=== PATIENT | female | born 1940 | race Caucasian/White ===

== ENCOUNTER 2022-01-02 09:38 | Outpatient (CLI) | payer OTHER, SELFPAY ==
[2022-01-02 18:44] LABS: Basophils Absolute Auto 0.1 K/mm3 (0.0-0.1); Basophils Percent Auto 0.8 % (0.2-1.2); Eosinophils Absolute Auto 0.4 K/mm3 (0-0.3); Eosinophils Percent Auto 5.4 % (0-4.4); Hematocrit 44.3 % (37.0-47.0); Immature Granulocyte Absolute 0.03 K/mm3 (0.00-0.031); Immature Granulocyte Percent A 0.4 % (0-0.5); Lymphocytes Absolute Auto 1.48 K/mm3 (0.9-3.2); Lymphocytes Percent Auto 20.4 % (18.3-44.2); Mean Corpuscular HGB Conc 31.6 g/dl (32-36); Mean Corpuscular Hemoglobin 30.8 pg (26-34); Mean Corpuscular Volume 97.4 fl (80-100); Mean Platelet Volume 11.9 fl (7.4-10.4); Monocytes Absolute Auto 0.5 K/mm3 (0.1-0.6); Monocytes Percent Auto 6.3 % (2.6-8.5); Neutrophils Absolute Auto 4.8 K/mm3 (1.3-6.7); Neutrophils Percent Auto 66.7 % (45.5-73.1); Platelet Count Result 210 k/mm3 (150-375); Red Blood Count 4.55 M/mm3 (4.2-5.4); Red Cell Distribution Width 14.8 % (11.5-14.5); White Blood Count 7.3 K/mm3 (4.5-10.0)
[2022-01-02 19:16] LABS: Alanine Aminotransferase 21 U/L (6-35); Albumin Level 4.5 g/dL (3.5-5.1); Alkaline Phosphatase 95 U/L (38-126); Anion Gap 13 mmol/L (8-16); Aspartate Amino Transferase 21 U/L (14-36); Bilirubin,Total 0.6 mg/dL (0.2-1.3); Blood Urea Nitrogen 21 mg/dL (7-17); Calcium 9.2 mg/dL (8.4-10.2); Carbon Dioxide 24 mmol/L (22-30); Chloride 105 mmol/L (98-107); Cholesterol 137 mg/dL (0-200); Estimated Glomerular Filt Rate 60; Glucose 98 mg/dL (65-110); HDL Direct 42 mg/dL; Potassium 4.2 mmol/L (3.4-5.0); Sodium 142 mmol/L (137-145); Triglycerides 114 mg/dL (<150)
[2022-01-02 19:27] LABS: LDL Cholesterol Direct 63 mg/dL
[2022-01-02 20:16] LABS: Vitamin D 25 Hydroxy 50.7 ng/mL
== END 2022-01-02 09:39 | disposition home or self-care (01) ==
LOC: ANHGOSHLAB 09:40
PROVIDERS: PCP Family Medicine; Visit Provider Family Medicine
DX: E78.5 Hyperlipidemia, unspecified (principal); E55.9 Vitamin D deficiency, unspecified; I10 Essential (primary) hypertension; Z00.00 Encounter for general adult medical examination without abnormal findings; F41.9 Anxiety disorder, unspecified; E53.8 Deficiency of other specified B group vitamins
CPT/HCPCS: 36415; 80053; 80061; 82306; 82607; 84443; 85025

== ENCOUNTER 2023-01-15 13:39 | Outpatient (CLI) | payer OTHER, SELFPAY ==
[2023-01-15 18:40] LABS: Alanine Aminotransferase 19 U/L (6-35); Albumin Level 4.4 g/dL (3.5-5.1); Alkaline Phosphatase 96 U/L (38-126); Anion Gap 8 mmol/L (8-16); Aspartate Amino Transferase 31 U/L (14-36); Bilirubin,Total 0.7 mg/dL (0.2-1.3); Blood Urea Nitrogen 23 mg/dL (7-17); Calcium 9.8 mg/dL (8.4-10.2); Carbon Dioxide 30 mmol/L (22-30); Chloride 104 mmol/L (98-107); Cholesterol 133 mg/dL (0-200); Estimated Glomerular Filt Rate > 60; Glucose 84 mg/dL (65-110); HDL Direct 45 mg/dL; Potassium 3.7 mmol/L (3.4-5.0); Sodium 142 mmol/L (137-145); Triglycerides 113 mg/dL (<150)
[2023-01-15 18:51] LABS: LDL Cholesterol Direct 68 mg/dL
[2023-01-15 18:57] LABS: Vitamin D 25 Hydroxy 35.7 ng/mL
[2023-01-15 19:40] LABS: Basophils Absolute Auto 0.1 K/mm3 (0.0-0.1); Basophils Percent Auto 0.8 % (0.2-1.2); Eosinophils Absolute Auto 0.3 K/mm3 (0-0.3); Eosinophils Percent Auto 3.4 % (0-4.4); Hematocrit 43.6 % (37.0-47.0); Hemoglobin 13.7 g/dL (12.0-15.0); Immature Granulocyte Absolute 0.03 K/mm3 (0.00-0.031); Immature Granulocyte Percent A 0.4 % (0-0.5); Lymphocytes Absolute Auto 1.68 K/mm3 (0.9-3.2); Mean Corpuscular HGB Conc 31.4 g/dl (32-36); Mean Corpuscular Hemoglobin 30.5 pg (26-34); Mean Corpuscular Volume 97.1 fl (80-100); Mean Platelet Volume 12.2 fl (7.4-10.4); Monocytes Absolute Auto 0.7 K/mm3 (0.1-0.6); Monocytes Percent Auto 7.7 % (2.6-8.5); Neutrophils Absolute Auto 5.7 K/mm3 (1.3-6.7); Neutrophils Percent Auto 67.7 % (45.5-73.1); Platelet Count Result 220 k/mm3 (150-375); Red Blood Count 4.49 M/mm3 (4.2-5.4); Red Cell Distribution Width 14.8 % (11.5-14.5); White Blood Count 8.4 K/mm3 (4.5-10.0)
[2023-01-15 19:52] LABS: Hemoglobin A1C 5.1 % (<5.7)
== END 2023-01-15 13:40 | disposition home or self-care (01) ==
PROVIDERS: PCP Family Medicine; Visit Provider Nurse Practitioner Family
DX: Z00.00 Encounter for general adult medical examination without abnormal findings (principal); I10 Essential (primary) hypertension; R73.03 Prediabetes; Z13.220 Encounter for screening for lipoid disorders; Z13.29 Encounter for screening for other suspected endocrine disorder; E55.9 Vitamin D deficiency, unspecified
CPT/HCPCS: 36415; 80053; 80061; 82306; 83036; 84443; 85025

== ENCOUNTER → 2023-01-15 13:58 | Outpatient (CLI) | payer OTHER, SELFPAY ==
--- NOTE | ~2023-01-15 | XR_ITS ---
EXAMINATION: [id number] INDICATION: Left knee pain TECHNIQUE: Two views of the left knee are obtained. COMPARISON: None available FINDINGS: There are changes of knee arthroplasty. Alignment is normal. There is no fracture. The orth opedic hardware appears intact. Calcified atherosclerosis is noted. IMPRESSION: 1. No acute osseous abnormality. Reviewed, dictated and finalized at location L. TAL DESIGN ENGINEER
== END ==
PROVIDERS: PCP Nurse Practitioner Family; Visit Provider Nurse Practitioner Family
DX: M25.562 Pain in left knee (principal)
CPT/HCPCS: 73560

== ENCOUNTER 2023-06-11 10:26 | Outpatient (CLI) | payer OTHER, SELFPAY ==
[2023-06-11 13:26] LABS: Alanine Aminotransferase 16 U/L (6-35); Albumin Level 4.3 g/dL (3.5-5.1); Alkaline Phosphatase 99 U/L (38-126); Anion Gap 7 mmol/L (4-12); Aspartate Amino Transferase 41 U/L (14-36); Bilirubin,Total 0.6 mg/dL (0.2-1.3); Blood Urea Nitrogen 26 mg/dL (7-17); Calcium 10.3 mg/dL (8.4-10.2); Carbon Dioxide 28 mmol/L (22-30); Chloride 105 mmol/L (98-107); Estimated Glomerular Filt Rate 60; Glucose 96 mg/dL (65-110); Potassium 4.6 mmol/L (3.4-5.0); Sodium 140 mmol/L (137-145)
== END 2023-06-11 10:27 | disposition home or self-care (01) ==
PROVIDERS: PCP Family Medicine; Visit Provider Family Medicine
DX: E78.2 Mixed hyperlipidemia (principal); I10 Essential (primary) hypertension
CPT/HCPCS: 36415; 80053

== ENCOUNTER 2024-01-22 08:11 | Outpatient (CLI) | payer OTHER, SELFPAY ==
[2024-01-22 12:03] LABS: Basophils Percent Auto 0.6 % (0.2-1.2); Eosinophils Absolute Auto 0.3 K/mm3 (0-0.3); Eosinophils Percent Auto 5.5 % (0-4.4); Hematocrit 42.1 % (37.0-47.0); Hemoglobin 13.3 g/dL (12.0-15.0); Immature Granulocyte Absolute 0.01 K/mm3 (0.00-0.031); Immature Granulocyte Percent A 0.2 % (0-0.5); Lymphocytes Percent Auto 22.7 % (18.3-44.2); Mean Corpuscular HGB Conc 31.6 g/dl (32-36); Mean Corpuscular Hemoglobin 30.6 pg (26-34); Mean Corpuscular Volume 96.8 fl (80-100); Mean Platelet Volume 11.2 fl (7.4-10.4); Monocytes Absolute Auto 0.5 K/mm3 (0.1-0.6); Monocytes Percent Auto 7.3 % (2.6-8.5); Neutrophils Absolute Auto 3.9 K/mm3 (1.3-6.7); Neutrophils Percent Auto 63.7 % (45.5-73.1); Platelet Count Result 197 k/mm3 (150-375); Red Blood Count 4.35 M/mm3 (4.2-5.4); Red Cell Distribution Width 14.6 % (11.5-14.5); White Blood Count 6.2 K/mm3 (4.5-10.0)
[2024-01-22 12:09] LABS: Alanine Aminotransferase 16 U/L (6-35); Albumin Level 4.1 g/dL (3.5-5.1); Alkaline Phosphatase 93 U/L (38-126); Anion Gap 8 mmol/L (4-12); Aspartate Amino Transferase 32 U/L (14-36); Bilirubin,Total 0.5 mg/dL (0.2-1.3); Blood Urea Nitrogen 19 mg/dL (7-17); Calcium 9.1 mg/dL (8.4-10.2); Carbon Dioxide 30 mmol/L (22-30); Chloride 104 mmol/L (98-107); Cholesterol 125 mg/dL (0-200); Estimated Glomerular Filt Rate > 60; Glucose 89 mg/dL (65-110); HDL Direct 43 mg/dL; Sodium 142 mmol/L (137-145); Triglycerides 83 mg/dL (<150)
[2024-01-22 12:34] LABS: LDL Cholesterol Direct 56 mg/dL
[2024-01-22 13:02] LABS: Hemoglobin A1C 5.3 % (<5.7)
== END 2024-01-22 08:12 | disposition home or self-care (01) ==
PROVIDERS: PCP Family Medicine; Visit Provider Family Medicine
DX: R73.9 Hyperglycemia, unspecified (principal); E53.8 Deficiency of other specified B group vitamins; G89.29 Other chronic pain; M54.50 Low back pain, unspecified; Z00.00 Encounter for general adult medical examination without abnormal findings; I10 Essential (primary) hypertension; E78.5 Hyperlipidemia, unspecified; E55.9 Vitamin D deficiency, unspecified
CPT/HCPCS: 36415; 80053; 80061; 82306; 82607; 83036; 84443; 85025

== ENCOUNTER 2024-07-22 09:12 | Outpatient (CLI) | payer OTHER, SELFPAY ==
--- OUTSIDE RECORDS SUMMARY | 2024-07-22 09:27 | XMS_ITS | Patient Health Record ---
Author Organization [facility] Address [address] [facility] [address] [place], [place] [address] Care Team Providers Care Special Events Manager Name Role Phone Vineet Oliver Unavailable [phone] Reason For Referral No Information Plan Of Treatment No Information Insurance Providers Payer Name Payer Address Payer Phone Subscriber Number Group Number Insured Name Patient Relationship to Insured Coverage Start Date Coverage End Date [facility] [address] [place] [id number] Sydney Sullivan Self - patient is the insured
--- OUTSIDE RECORDS SUMMARY | 2024-07-22 09:27 | XMS_ITS | Clinical Summary ---
Author Organization [facility] Address [address] [facility] [place] [address] Care Team Providers Care Senior Cytogenetics Laboratory Director Name Role Phone Sara Arias RN Unavailable [phone] Rashawn Khalil MD Unavailable [phone] Ning Everett MD Primary Care Provider [phone] Source Comments [facility],non-owned Affiliates and Associated Physician Practices is amultiple site organization consisting of ambulatory clinics and hospital sitesin [place], [place], [place] and [place]. This disclosure is being madepursuant to the Care Everywhere program and may not contain all information available regarding this patient. Last updated 17.[facility] Allergies Active Allergy Reactions Criticality Noted Date Comments Penicillins Rash Low 08/17/2013 As a child Medications * Be aware that medications may not be up to date on this document. Alwaysverify current medications with the patient. FLUoxetine (PROZAC) 10 MG capsule Take 10 mg by mouth every morning Active pravastatin (PRAVACHOL) 80 MG tablet Take 1 Tab by mouth at bedtime. 30 Tab 11 4 Active metoprolol tartrate IR (LOPRESSOR) 50 MG tablet Take 1 Tab by mouth 2 times daily. 60 Tab 11 4 Active triamcinolone acetonide (KENALOG) 0.1 % cream Apply to affected area 2 times daily as needed Apply externally to itching. 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 (F LUZONE; FLULAVAL; FLUARIX; AFLURIA QUADRIVALENT; 6MO+), 0.5 ML (IIV4) 04/08/2015 PNEUMOCOCCAL PPSV23 08/18/2013 Social History Tobacco Use Types Packs/Day Years Used Date Smoking Tobacco: Never Smokeless Tobacco: Never Tobacco Cessation:Counseling Given: Yes Alcohol Use Standard Drinks/Week Comments No 0 (1 standard drink = 0.6 oz pur e alcohol) Comments No Sex and Gender Information Value Date Recorded Sex Assigned at Not on file Legal Sex Female 7:44 AM CDT Gender Identity Not on file Sexual Orientation Not on file Last Filed Vital Signs Vital Sign Reading Time Taken Comments Blood Pressure 157/76 05/02/2015 8:20 AM SALESPERSON FLOOR COVERINGS Pulse 70 05/02/2015 8:20 AM SALESPERSON FLOOR COVERINGS Temperature 36.7 C (98.1 F) 05/02/2015 8:20 AM SALESPERSON FLOOR COVERINGS Respiratory Rate 18 05/02/2015 8:20 AM SALESPERSON FLOOR COVERINGS Oxygen Saturation 100% 05/02/2015 8:20 AM SALESPERSON FLOOR COVERINGS Inhaled Oxygen Concentration 21% 04/06/2015 9 :35 AM SALESPERSON FLOOR COVERINGS Weight 68 kg (150 lb) 04/30/2015 9:34 AM SALESPERSON FLOOR COVERINGS Height 149.9 cm (4' 11 ) 04/30/2015 9:34 AM SALESPERSON FLOOR COVERINGS Body Mass Index 30.3 04/30/2015 9:34 AM SALESPERSON FLOOR COVERINGS Plan of Treatment Health Maintenance Due Date Last Done Comments BONE DENSITY TESTING 1942 DTAP/TDAP/TD VACCINES (1 - Tdap) 1961 ZOSTER VACCINE (1 of 2) 01/09/1992 PNEUMOCOCCAL VACCINE 50+ (2 of 2 - PCV) 08/18/2014 08/18/2013 Respiratory Syncytial Virus (RSV) Vaccine Pt: or over 60 yrs (1 - 1-dose 75+ series) 2017 COVID-19 VACCINE ( - 2023-2 5 season) 2023 DEPRESSION SCREENING 03/09/2024 INFLUENZA VACCINE (Season Ended) 2024 04/08/19 16 HEPATITIS B VACCINE Aged Out No longe r eligible based on patient's age to complete this topic HIB VACCINE Aged Out No longer eligi ble based on patient's age to complete this topic HPV VACCINE Aged Out No longer eligi ble based on patient's age to complete this topic MENINGOCOCCAL (Group B) VACC INE SHARED DECISION-MAKING Aged Out No longer eligibl e based on patient's age to complete this topic MENINGOCOCCAL GROUPS A/C/Y/W VACCINE Aged Out No longer eligible b ased on patient's age to complete this topic Medical Devices Implanted Type Area Camera Maker Device Identifier Shelf Expiration Date Model / Serial / Lot Bradley Bone [place] Hv Implanted:Qty: 1 on 10/05/2014 by Rashawn Khalil MD at [facility] Right: Knee [employer] 05/06/2016 [id number] / / [id number] Ty Tibial I Beam Fix Bar 67mm Implanted:Qty: 1 on 10/05/2014 by Rashawn Khalil MD at [facility] Right: [employer]nee [employer] 12/07/2023 [id number] / / [id number] Kn Ins Vangurd Fem Cocr R-Intlok 60mm Implanted:Qty: 1 on 10/05/2014 by Rashawn Khalil MD at [facility] Right: Knee [employer] 05/03/2024 [id number] / / [id number] Butn Pat Arcom Wire Polyeth Xsm 28 X 8 Implanted:Qty: 1 on 10/05/2014 by Rashawn Khalil MD at [facility] Right: Knee [employer] 07/08/2019 [id number] / / [id number] Brdg Tib 14mm X 67mm Implanted:Qty: 1 on 10/05/2014 by Rashawn Khalil MD at [facility] Right: Knee [employer] 07/13/2019 [id number] / / [id number] 55mm-67.5mm As Tibial Bearing Implanted:Qty: 1 on 04/05/2015 by Rashawn Khalil MD at [facility] Left: Knee [employer] 12/07/2019 [id number] / / [id number] Bradley Bone [place] Hv Implanted:Qty: 1 on 04/05/2015 by Rashawn Khalil MD at [facility] Left: Knee [employer] 09/05/2016 [id number] / / [id number] Butn Pat Arcom Wire Polyeth Xsm 28 X 8 Implanted:Qty: 1 on 04/05/2015 by Rashawn Khalil MD at [facility] Left: Knee [employer] 01/31/2020 [id number] / / [id number] Ty Tibial I Beam Fix Bar 67mm Implanted:Qty: 1 on 04/05/2015 by Rashawn Khalil MD at [facility] Left: Knee [employer] 03/12/2025 [id number] / / [id number] Kn Ins Vangurd Fem Cocr L-Intlok 62.5mm Implanted:Qty: 1 on 04/05/2015 by Rashawn Khalil MD at [facility] Left: Knee [employer] 01/18/2025 [id number] / / [id number] Insurance [facility] MEDIC[facility] Advance Directives * Full Code (Latest Code Status on File) Date Activated Date Inactivated Comments 04/30/2015 7:04 AM 05/02/2015 4:03 PM * Full Code Date Activated Date Inactivated Comments 04/05/2015 2:48 PM 04/08/2015 3:43 PM * Full Code Date Activated Date Inactivated Comments 10/05/2014 2:58 PM 10/09/2014 2:10 PM * Full Code Date Activated Date Inactivated Comments 08/17/2013 10:19 AM 08/19/2013 12:44 PM Care Teams Senior Cytogenetics Laboratory Director Relationship Specialty [place] [address] [place] [address] PCP - General Family Medicine 03/05/15 Sara Arias, RN Natural Resource Economist 08/17/13 [place] [address] [place] [address] Orthopedic Surgery 08/31/14
--- OUTSIDE RECORDS SUMMARY | 2024-07-22 09:27 | XMS_ITS | Encounter Summary ---
Author Organization [facility] Address [address] [facility] [place] [address] Care Team Providers Care Frame Pulley Mortising Machine Operator Name Role Phone Sara Arias RN Unavailable [phone] Rashawn Khalil MD Unavailable [phone] Ning Everett MD Primary Care Provider [phone] Encounter Details Date Type Department Care Team (Late st Contact Info) Description 04/25/2015 Therapy Visit [facility] Orthopedics [address] [address] [place] [id number] [address] Social History Tobacco Use Types Packs/Day Years Used Date Smoking Tobacco: Never Smokeless Tobacco: Never Alcohol Use Standard Drinks/Week Comments No 0 (1 standard drink = 0.6 oz pur e alcohol) Comments No Sex and Gender Information Value Date Recorded Sex Assigned at Not on file Legal Sex Female 7:44 AM CDT Gender Identity Not on file Sexual Orientation Not on file documented as of this encounter Functional Status * Is person deaf or have serious hearing difficulty? Answer Date of Assessment Author No 04/08/2015 1:16 PM Alonzo Downs RN * Is person blind or have serious difficulty seeing? Answer Date of Assessment Author No 04/08/2015 1:16 PM Alonzo Downs RN * Does person have serious difficulty walking/climbing stairs? Answer Date of Assessment Author No 04/08/2015 1:16 PM Alonzo Downs RN * Does person have difficulty dressing/bathing? Answer Date of Assessment Author No 04/08/2015 1:16 PM Alonzo Downs RN * Does person have difficulty doing errands alone? Answer Date of Assessment Author Yes 04/08/2015 1:16 PM Alonzo Downs RN documented as of this encounter Mental Status * Does person have difficulty concentrating/remembering/making decisions? Answer Entry Date Author No 04/08/2015 1:16 PM Alonzo Downs RN documented in this encounter Plan of Treatment Not on file documented as of this encounter Visit Diagnoses Not on filedocumented in this encounter Care Teams Frame Pulley Mortising Machine Operator Relationship Specialty [place] [address] [place] [address] PCP - General Family Medicine 03/05/15 Sara Arias RN Ink Technician 08/17/13 [place] [address] [place] [address] Orthopedic Surgery 08/31/14 documented as of this encounter
--- OUTSIDE RECORDS SUMMARY | 2024-07-22 09:27 | XMS_ITS | Encounter Summary ---
Author Organization [facility] Address [address] [facility] [place] [address] Care Team Providers Care Graduate School Dean Name Role Phone Sara Arias RN Unavailable [phone] Rashawn Khalil MD Unavailable [phone] Billy Salmon Primary Care Provider [phone] Ning Everett MD Primary Care Provider [phone] Encounter Details Date Type Department Care Team (Late st Contact Info) Description 10/26/2014 Therapy Visit [facility] Orthopedics [address] [facility] [address] [place] [address] [place] [id number] [address] Social History Tobacco Use Types [...] difficulty? Answer Date of Assessment Author No 10/05/2014 1:22 PM JORGET Ning Juan mp, RN * Is person blind or have serious difficulty seeing? Answer Date of Assessment Author No 10/05/2014 1:22 PM JORGET Ning Juan mp, RN * Does person have serious difficulty walking/climbing stairs? Answer Date of Assessment Author Yes 10/05/2014 1:22 PM CDT Ning Juan mp, RN * Does person have difficulty dressing/bathing? Answer Date of Assessment Author No 10/05/2014 1:22 PM JORGET Ning Juan mp, RN * Does person have difficulty doing errands alone? Answer Date of Assessment Author No 10/05/2014 1:22 PM JORGET Ning Juan mp, RN documented as of this encounter Mental Status * Does person have difficulty concentrating/remembering/making decisions? Answer Entry Date Author No 10/05/2014 1:22 PM Ning Ellison mp, RN documented in this encounter Plan of Treatment Not on file documented as of this encounter Visit Diagnoses Not on filedocumented in this encounter Care Teams Graduate School Dean Relationship Specialty Start Date End Date Nick[address] [place] [address] PCP - General 08/31/14 03/04/15 Ning Everett MD [address] [place] [address] PCP - General Family Medicine 03/05/15 Sara Arias RN Applications Systems Analyst 08/17/13 [place] [address] [place] [address] Orthopedic Surgery 08/31/14 documented as of this encounter
[2024-07-22 12:34] LABS: Alanine Aminotransferase 19 U/L (6-35); Albumin Level 4.1 g/dL (3.5-5.1); Alkaline Phosphatase 88 U/L (38-126); Anion Gap 8 mmol/L (4-12); Aspartate Amino Transferase 36 U/L (14-36); Bilirubin,Total 0.5 mg/dL (0.2-1.3); Blood Urea Nitrogen 25 mg/dL (7-17); Carbon Dioxide 27 mmol/L (22-30); Chloride 107 mmol/L (98-107); Estimated Glomerular Filt Rate > 60; Glucose 78 mg/dL (65-110); Sodium 142 mmol/L (137-145)
== END 2024-07-22 09:13 | disposition home or self-care (01) ==
PROVIDERS: PCP Family Medicine; Visit Provider Family Medicine
DX: E53.8 Deficiency of other specified B group vitamins (principal); I10 Essential (primary) hypertension
CPT/HCPCS: 36415; 80053; 82607

== ENCOUNTER 2025-02-27 09:11 | Outpatient (CLI) | payer OTHER, SELFPAY ==
--- OUTSIDE RECORDS SUMMARY | 2025-02-27 10:03 | XMS_ITS | Encounter Summary ---
Author Organization [facility] Address [address] [facility] [place] [address] Care Team Providers Care Male Model Name Role Phone Sara Arias RN Unavailable [phone] Rashawn Khalil MD Unavailable [phone] Ning Everett MD Primary Care Provider [phone] Encounter Details Date Type Department Care Team (Late st Contact Info) Description 04/25/2015 Therapy Visit [facility] Orthopedics [address] [address] [place] [address] [address] Social History Tobacco Use Types [...] on filedocumented in this encounter Care Teams Male Model Relationship Specialty [place] [address] [place] [address] PCP - General Family Medicine 03/05/15 Sara Arias RN Personal Injury Legal Assistant 08/17/13 [place] [address] [place] [address] Orthopedic Surgery 08/31/14 documented as of this encounter
--- OUTSIDE RECORDS SUMMARY | 2025-02-27 10:03 | XMS_ITS | Clinical Summary ---
Author Organization [facility] Address [address] [facility] [place] [address] Care Team Providers Care Parking Lot Manager Name Role Phone Sara Arias RN Unavailable [phone] Rashawn Khalil MD Unavailable [phone] Ning Everett MD Primary Care Provider [phone] Source Comments [facility],non-owned Affiliates and Associated Physician Practices is amultiple site organization consisting of ambulatory clinics and hospital sitesin [place], [place], [place] and [place]. This disclosure is being madepursuant to the Care Everywhere program and may not contain all information available regarding this patient. Last updated 17.[facility] Allergies Active Allergy Reactions Criticality Noted Date [...] Take 1 Tab by mouth once daily 6 Active omeprazole EC (PRILOSEC OTC) 20 [...] Comments Blood Pressure 157/76 05/02/2015 8:20 AM OPTOMETRY TEACHER Pulse 70 05/02/2015 8:20 AM OPTOMETRY TEACHER Temperature 36.7 C (98.1 F) 05/02/2015 8:20 AM OPTOMETRY TEACHER Respiratory Rate 18 05/02/2015 8:20 AM OPTOMETRY TEACHER Oxygen Saturation 100% 05/02/2015 8:20 AM OPTOMETRY TEACHER Inhaled Oxygen Concentration 21% 04/06/2015 9 :35 AM OPTOMETRY TEACHER Weight 68 kg (150 lb) 04/30/2015 9:34 AM OPTOMETRY TEACHER Height 149.9 cm (4' 11) 04/30/2015 9:34 AM OPTOMETRY TEACHER Body Mass Index 30.3 04/30/2015 9:34 AM OPTOMETRY TEACHER Plan of Treatment Health Maintenance Due Date Last Done Comments BONE DENSITY TESTING 1942 DTAP/TDAP/TD VACCINES (1 - Tdap) 1961 ZOSTER VACCINE (1 of 2) 01/09/1992 PNEUMOCOCCAL VACCINE 50+ (2 of 2 - PCV) 08/18/2014 08/18/2013 Respiratory Syncytial Virus (RSV) Vaccine Pt: or over 60 yrs (1 - 1-dose 75+ series) 2017 DEPRESSION SCREENING 03/09/2024 COVID-19 VACCINE (1 - 2024-2 6 season) 2024 INFLUENZA VACCINE (#1) 2024 04/08/2015 HEPATITIS B VACCINE Aged Out No longe [...] this topic Medical Devices Implanted Type Area Supervisor Park Workers Device Identifier Shelf Expiration Date Model / Serial / Lot Bradley Bone [place] Hv Implanted:Qty: 1 on 10/05/2014 by Rashawn Khalil MD at [facility] Right: Knee [employer] 05/06/2016 [id number] / / [id number] Ty Tibial I Beam Fix Bar 67mm Implanted:Qty: 1 on 10/05/2014 by Rashawn Khalil MD at [facility] Right: [employer] 12/07/2023 [id number] / / [id number] Kn Ins Vangurd Fem Cocr R-Intlok 60mm Implanted:Qty: 1 on 10/05/2014 by Rashawn Khalil MD at [facility] Right: [employer] 05/03/2024 [id number] / / [id number] Butn Pat Arcom Wire Polyeth Xsm 28 X 8 Implanted:Qty: 1 on 10/05/2014 by Rashawn Khalil MD at [facility] Right: [employer]nee [employer] 07/08/2019 [id number] / / [id number] Brdg Tib 14mm X 67mm Implanted:Qty: 1 on 10/05/2014 by Rashawn Khalil MD at [facility] Right: [employer] 07/13/2019 [id number] / / [id number] 55mm-67.5mm As Tibial Bearing Implanted:Qty: 1 on 04/05/2015 by Rashawn Khalil MD at [facility] Left: Knee [employer] 12/07/2019 [id number] / / [id number] Bradley Bone [place] Hv Implanted:Qty: 1 on 04/05/2015 by Rashawn Khalil MD at [facility] Left: Knee [employer] 09/05/2016 [id number] / / [id number] Butn Pat Arcom Wire Polyeth Xsm 28 X 8 Implanted:Qty: 1 on 04/05/2015 by Rashawn Khalil MD at [facility] Left: [employer]nee [employer] 01/31/2020 [id number] / / [id number] Ty Tibial I Beam Fix Bar 67mm Implanted:Qty: 1 on 04/05/2015 by Rashawn Khalil MD at [facility] Left: [employer]nee [employer] 03/12/2025 [id number] / / [id number] Kn Ins Vangurd Fem Cocr L-Intlok 62.5mm Implanted:Qty: 1 on 04/05/2015 by Rashawn Khalil MD at [facility] Left: [employer]nee [employer] 01/18/2025 [id number] / / [id number] Insurance [facility] MEDICARE Advance Directives * Full Code (Latest [...] 10:19 AM 08/19/2013 12:44 PM Care Teams Parking Lot Manager Relationship Specialty [place] [address] [place] [address] PCP - General Family Medicine 03/05/15 Sara Arias, RN Kosher Sealer 08/17/13 [place] [address] [place] [address] Orthopedic Surgery 08/31/14
--- OUTSIDE RECORDS SUMMARY | 2025-02-27 10:03 | XMS_ITS | Encounter Summary ---
Author Organization [facility] Address [address] [place] [address] Care Team Providers Care Electronic Scale Assembler And Tester Name Role Phone Sara Arias RN Unavailable [phone] Rashawn Khalil MD Unavailable [phone] Billy Salmon Primary Care Provider [phone] Ning Everett MD Primary Care Provider [phone] Encounter Details Date Type Department Care Team (Late st Contact Info) Description 10/26/2014 Therapy Visit [facility] Orthopedics [address] [facility] [address] [place] [address] [place] [address] [address] Social History Tobacco Use Types [...] Assessment Author No 10/05/2014 1:22 PM JORGET Diestelka mp, Ning J, RN * Does person have serious difficulty [...] on filedocumented in this encounter Care Teams Electronic Scale Assembler And Tester Relationship Specialty Start Date End Date NickyjacintoBilly delatorre [address] [place] [address] PCP - General 08/31/14 03/04/15 Ning Everett MD [address] [place] [address] PCP - General Family Medicine 03/05/15 Sara Arias RN Custom Shoe Designer And Maker 08/17/13 [place] [address] [facility] [address] [place] [address] Orthopedic Surgery 08/31/14 documented as of this encounter
[2025-02-27 13:58] LABS: Hematocrit 43.6 % (37.0-47.0); Hemoglobin 13.8 g/dL (12.0-15.0); Immature Granulocyte Percent A 0.3 % (0-0.5); Lymphocytes Absolute Auto 1.21 K/mm3 (0.9-3.2); Mean Corpuscular HGB Conc 31.7 g/dl (32-36); Mean Corpuscular Hemoglobin 30.1 pg (26-34); Mean Corpuscular Volume 95.2 fl (80-100); Nucleated Red Blood Cells Absolute Auto 0.000 K/mm3 (0.0-0.012); Nucleated Red Blood Cells Perc 0.0 % (0.0-0.2); Platelet Count Result 225 k/mm3 (150-375); Red Blood Count 4.58 M/mm3 (4.2-5.4); White Blood Count 7.6 K/mm3 (4.5-10.0)
[2025-02-27 14:19] LABS: Alanine Aminotransferase 21 U/L (6-35); Albumin Level 4.4 g/dL (3.5-5.1); Alkaline Phosphatase 90 U/L (38-126); Anion Gap 10 mmol/L (4-12); Aspartate Amino Transferase 35 U/L (14-36); Bilirubin,Total 0.8 mg/dL (0.2-1.3); Blood Urea Nitrogen 21 mg/dL (7-17); Calcium 9.4 mg/dL (8.4-10.2); Carbon Dioxide 24 mmol/L (22-30); Chloride 106 mmol/L (98-107); Cholesterol 133 mg/dL (0-200); Estimated Glomerular Filt Rate > 60; Glucose 100 mg/dL (65-110); HDL Direct 47 mg/dL; Potassium 4.5 mmol/L (3.4-5.0); Sodium 140 mmol/L (137-145); Total Protein 7.4 g/dL (6.3-8.2); Triglycerides 98 mg/dL (<150)
[2025-02-27 14:43] LABS: Hemoglobin A1C 5.5 % (<5.7)
[2025-02-27 14:44] LABS: Thyroid Stimulating Hormone Reflex 1.830 uIU/mL (0.465-4.68)
[2025-02-27 15:17] LABS: Vitamin B12 999.0 pg/mL (239-931)
== END 2025-02-27 09:12 | disposition home or self-care (01) ==
LOC: ANHGOSHLAB 09:12
PROVIDERS: PCP Family Medicine; Visit Provider Family Medicine
DX: I10 Essential (primary) hypertension (principal); Z00.00 Encounter for general adult medical examination without abnormal findings; E78.5 Hyperlipidemia, unspecified; E53.8 Deficiency of other specified B group vitamins; E55.9 Vitamin D deficiency, unspecified; R73.9 Hyperglycemia, unspecified
CPT/HCPCS: 36415; 80053; 80061; 82306; 82607; 83036; 84443; 85025